=== PATIENT | female | born 1960 | race Two or more races ===

== ENCOUNTER 2018-10-05 03:23 | Inpatient (IN) | payer MEDICARE, OTHER ==
[~2018-10-05] VITALS: Ht 154.9 cm; Wt 64.2 kg
[2018-10-05 06:00] VITALS: BP 121/72
[2018-10-05 06:14] VITALS: BP 121/72
--- NOTE | 2018-10-05 06:20 | NUR ---
NURSE NOTES: PATIENT IS A DIRECT ADMIT FROM [facility]. RECEIVED PATIENT BY AMBULANCE, ACCOMPANIED BY SISTER. PATIENT HAS TWO IV ACCESS, LEFT HAND 20 GAUGE, AND RIGHT WRIST 22 GAUGE, INTACT. PATIENT IS AWAKE, ABLE TO FOLLOW COMMANDS AND ANSWER QUESTIONS, BUT IS NOT ALERT TO NAME, DATE, PLACE, OR PURPOSE. SISTER ASSISTED IN TRANSLATION AND CAN SPEAK BASIC [place] SINCE WHEN NURSE TRIED TO USE 3 VOICEPLATE[employer] PHONES, NONE OF THEM WORKED, CHARGE NURSE AWARE. NO S/S RESPIRATORY DISTRESS NOTED. PER FLACC SCALE, PAIN SCALE IS 4/10. PATIENT NOTED LEFT THUMB TO BE BLUE, PURPLE, WHITE, RED, AND PINK IN COLOR WITH SCANT DRAINAGE AND SWELLING, COVERED WITH DRY DRESSING. PER SISTER, PATIENT LIVES WITH HER. LAST BM OF PATIENT PER SISTER WAS YESTERDAY 10/04/18. REVIEWED PATIENT BELONGINGS WITH SISTER, PER SISTER SHE WILL TAKE HOME THE 1 EARRING ON PATIENT'S LEFT EAR AND LEAVE PATIENT'S CLOTHING AND UNDERWEAR AT BEDSIDE, NO OTHER VALUABLES - HUBER OR MONEY NOTED, SISTER SIGNED BELONGINGS LIST. BED IN LOWEST POSITION, CALL LIGHT WITHIN REACH. WILL CONTINUE TO MONITOR. Addendum: 10/05/18 at 0638 by COLLIN SAUCEDA RN RN PER PATIENT'S SISTER, PATIENT IS "MENTALLY RETARDED".
[2018-10-05] MEDS ORDERED: CENTRUM PO (06:29)
--- NOTE | 2018-10-05 06:30 | NUR ---
NURSE NOTES: PER PATIENT'S SISTER, PATIENT TAKES CENTRUM MULTIVITAMIN PO DAILY.
--- NOTE | 2018-10-05 06:40 | NUR ---
NURSE NOTES: CALLED AND LEFT MESSAGE FOR DR. CORMIER REGARDING ADMISSION ORDERS, AWAITING RESPONSE.
--- NOTE | 2018-10-05 07:24 | NUR ---
NURSE NOTES:BEDSIDE ROUNDS DONE WITH NIGHT RN(COLLIN)PATIENT ASLEEP ON HER RIGHT SIDE POSITION,ROOM AIR,LEFT THUMB DRSNG C/D/I. 2 HEPLOCKS INTACT.BED LOCKED.NO SIGN OF DISTRESS.
--- NOTE | 2018-10-05 07:24 | NUR ---
HAND-OFF: Report given to MANUEL CELESTE RN.
[2018-10-05] MEDS ORDERED: Morphine Sulfate 2mg/ml Inj(IV/IM USE ONLY) IVP PRN (07:45)
[2018-10-05 08:00] VITALS: BP 137/79
[2018-10-05] MEDS: Cefepime HCl 1 GM in D5W 55 ML IVPB SCH ×2 (08:54→21:39)
--- NOTE | 2018-10-05 09:00 | NUR ---
NURSE NOTES:awake,oriented to name,room air,iv sites x2 patent/intact.bed locked.responding verbally,no c/o pain.sister at bedside for supportive care.
[2018-10-05] MEDS ORDERED: Vancomycin 1gm in D5W 275ml IVPB SCH (10:00)
--- NOTE | 2018-10-05 10:00 | NUR ---
NURSE NOTES:ASSISTED TO BATHROOM,VOIDED.
[2018-10-05 11:54] VITALS: BP 117/65
--- NOTE | 2018-10-05 13:24 | History & Physical ---
History and Physical History & Physicial Dictated for Int Med-Dfr [facility] no. [id number]. Eladio Fletcher MD October 05, 2018 13:24
--- NOTE | 2018-10-05 14:56 | NUR ---
CASE MANAGEMENT: INITIAL REVIEW 58 YO F DIRECT ADMIT FROM [facility] CC: CELLULITIS PMHx: DENIES SI:LEFT THUMB CELLULITIS ABSCESS. T 97.9 HR 80 RR 20 B/P 117/65 SATS 95% ON RA NO LABS PROVIDED IS:CEFEPIME IV Q12H PATIENT ADMITTED TO MED/SURG 10/05/2018 @ 0808 PLAN OF CARE: XRAY HAND IV ANTIBx
--- NOTE | 2018-10-05 15:12 | NUR ---
NURSE NOTES:SEEN BY DR. OLIVEROS.AND CHANGE DRESSING ON LEFT THUMB WITH ADAPTIC/08/14.NO SURGERY INDICATED.
--- NOTE | 2018-10-05 15:12 | Consultation ---
History of Present Illness General Date patient seen: October 05, 2018 Present Illness HPI 58 year old female presented as transfer from outside facility for evaluate of left hand thumb injury. states that 3 days ago injured her left thumb in door jam. since has worsened and did not tell anyone about it. family noted and came to ED for evaluation. surgery called to evaluate thumb for injury. patient seen, chart reviewed, patient examined. states pain improving slowly. Allergies: Coded Allergies: No Known Allergies (Unverified , 10/05/18) Medication History Scheduled [Centrum], 1 TAB PO DAILY, (Reported) Patient History History Provided By: Patient, Family Member, Medical Record, PMD Healthcare decision maker Resuscitation status Advanced Directive on File Past Medical/Surgical History Past Medical/Surgical History: (1) Cellulitis of left thumb Review of Systems Review of Symptoms General ROS: no weight loss or fever Psychological ROS: no depression or mood changes, no memory loss Ophthalmic ROS: no visual changes or eye irritation ENT ROS: no nasal congestion, hearing loss, dizziness Allergy and Immunology ROS: no allergic symptoms or urticaria Hematological and Lymphatic ROS: no swollen glands, unusual bleeding or bruising Endocrine ROS: no polyuria, polydipsia, weight changes, temperature intolerance Respiratory ROS: no cough, shortness of breath, or wheezing Cardiovascular ROS: no chest pain or dyspnea on exertion Gastrointestinal ROS: denies abdominal pain, no bright red blood in stool. Musculoskeletal ROS: no myalgias or arthralgias Neurological ROS: no TIA or stroke symptoms Dermatological ROS: no new or changing skin lesions, rashes or pruritis Physical Exam Physical Exam General appearance: alert, cooperative, no distress, appears stated age Head: Normocephalic, without obvious abnormality, atraumatic Eyes: conjunctivae/corneas clear. PERRL, EOM's intact. Fundi benign Throat: Lips, mucosa, and tongue normal. Teeth and gums normal Neck: supple, symmetrical, trachea midline, no adenopathy, thyroid: not enlarged, symmetric, no tenderness/mass/nodules, no carotid bruit and no JVD Lungs: clear to auscultation bilaterally Heart: regular rate and rhythm, S1, S2 normal, no murmur, click, rub or gallop Abdomen: soft, non-tender. Bowel sounds normal. No masses, no organomegaly Extremities: extremities normal, atraumatic, no cyanosis or edema Pulses: 2+ and symmetric Skin: Skin color, texture, turgor normal. No rashes or lesions Neurologic: Grossly normal Last 24 Hour Vital Signs Date Time Temp Pulse Resp B/P (MAP) Pulse Ox O2 Delivery O2 Flow Rate FiO2 10/05/18 11:54 97.9 80 20 117/65 (82) 95 10/05/18 09:00 Room Air 10/05/18 08:00 97.3 68 20 137/79 (98) 99 10/05/18 06:08 Room Air 10/05/18 06:00 98.6 82 18 121/72 (88) 94 Height (Feet): 5 Height (Inches): 1.00 Weight (Pounds): 142 Medications Current Medications Medications (Trade) Dose Ordered Sig/Collin Route PRN Reason Start Time Stop Time Status Last Admin Dose Admin Acetaminophen (Tylenol) 650 mg Q6H PRN ORAL Mild Pain/Temp > 100.5 10/05/18 07:45 11/04/18 07:44 Acetaminophen/ Hydrocodone Bitart ([place] 5/325) 1 tab Q6H PRN ORAL Moderate Pain (Pain Scale 4-6) 10/05/18 07:45 10/12/18 07:44 Cefepime HCl 1 gm/ Dextrose 55 ml @ 110 mls/hr EVERY 12 HOURS IVPB 10/05/18 09:00 10/12/18 08:59 10/05/18 08:54 Morphine Sulfate (Morphine Sulfate) 2 mg Q4H PRN IVP Severe Pain (Pain Scale 7-10) 10/05/18 07:45 10/12/18 07:44 Ondansetron HCl (Zofran) 4 mg Q4H PRN IVP Nausea & Vomiting 10/05/18 07:45 11/04/18 07:44 Vancomycin HCl (Vanco rx to dose) 1 ea DAILY PRN MISC Per rx protocol 10/05/18 07:45 11/04/18 07:44 Assessment/Plan Problem List: (1) Cellulitis of left thumb Assessment & Plan: left thumb cellulitis after trauma afebrile, HD stable, labs pending exam with left thumb edema, and mild cellulitis. tender at nailbed. no significant edema or tenderness at pip, mainly at dip. skin sloth from underlying hematoma. wound bed evaluated at bedside. sloth skin removed and underlying tissue bed clean and healthy nail bed visible and may not be viable. wound cleaned dressings applied cont with current therapy okay for diet AM labs Abx will monitor over next day or two to see if needs further surgical intervention thank you ICD Codes: L03.012 - Cellulitis of left finger SNOMED: [id number] Ketan Chu October 05, 2018 15:12
[2018-10-05] MEDS: HYDROcodone/Acetamin 5/325 tab ORAL PRN ×2 (15:19→21:41)
--- NOTE | 2018-10-05 15:19 | NUR ---
NURSE NOTES:NORCO 5/325 GIVEN FOR C/O THROBBING PAIN ON LEFT THUMB 10/20.
--- NOTE | 2018-10-05 15:35 | NUR ---
HAND-OFF: Report given to ESHA DURANT.RE:CONTINUITY OF CARE.BEDSIDE ROUNDS DONE.PATIENT STABLE.SISTER AT BEDSIDE FOR SUPPORTIVE CARE..
--- NOTE | 2018-10-05 15:35 | NUR ---
NURSE NOTES: PATIENT RECEIVED FROM MANUEL Rodriguez RN. WALKING ROUNDS DONE. PATIENT IN BED IN SUPINE POSITION. SISTER AT BEDSIDE. DENIES PAIN TO LEFT THUMB SITE. SMILING AND LAUGHING.DISCUSSED PLAN OF CARE FOR THE REMAINDER OF THE DAY WITH PATIENT AND SISTER, ACKNOWLEDGED. BED IN LOW AND LOCKED POSITION. CALL LIGHT WITHIN REACH.
[2018-10-05 15:55] VITALS: BP 98/52
--- NOTE | 2018-10-05 17:15 | History and Physical Report ---
DATE OF ADMISSION: 10/05/2018 CHIEF COMPLAINT: The patient is a 58-year-old female who presents with chief complaint of left thumb pain. HISTORY OF PRESENT ILLNESS: Began on , the patient shut her left thumb in a door. Thumb began to swell. Left thumb is now erythematous. The patient presented initially to [facility] Emergency Room. An initial chest x-ray failed to demonstrate osteomyelitis. The patient was transferred to [facility] for insurance purposes. The patient is admitted for left thumb cellulitis/abscess. REVIEW OF SYSTEMS: CONSTITUTIONAL: The patient denies weight loss or weight gain. The patient denies fevers or chills. HEENT: The patient denies ear or throat pain. The patient does have a lazy eye on the right. CARDIOVASCULAR: The patient denies palpitations or chest pain. CHEST: The patient denies wheeze or shortness of breath. ABDOMINAL: The patient denies nausea, vomiting, diarrhea, or constipation. GENITOURINARY: The patient denies dysuria or increased frequency of urination. NEUROMUSCULAR: The patient complains of left thumb pain as above. The patient denies seizures or generalized weakness. PAST MEDICAL HISTORY: The patient denies. PAST SURGICAL HISTORY: The patient denies. CURRENT MEDICATIONS: The patient denies. ALLERGIES: No known drug allergies. SOCIAL HISTORY: The patient is single and lives with her sister. The patient denies tobacco or alcohol use. PHYSICAL EXAMINATION: VITAL SIGNS: Temperature 98.6, respirations 18, pulse 80 to 92, blood pressure 111 to 117 over 60 to 64. GENERAL: The patient is well-developed and well-nourished female, in no apparent distress. HEENT: Eyes, pupils are equal and responsive to light and accommodation. Extraocular movements are intact. NECK: Supple without lymphadenopathy. CHEST: Lungs are clear to auscultation bilaterally without wheezes or rales. CARDIOVASCULAR: Regular rate and rhythm. S1 and S2 normal without murmurs, rubs, or gallops. ABDOMEN: Soft, nontender, and nondistended. Positive bowel sounds. No evidence of hepatosplenomegaly. Currently, no rebound or guarding noted. EXTREMITIES: Left thumb is erythematous and swollen. Otherwise extremities without clubbing, cyanosis, or edema. RECTAL/GENITAL: Refused. NEUROLOGIC: Cranial nerves II through XII are grossly intact without focal deficits. Motor strength is 5/5 bilaterally. Deep tendon reflexes are 2+ plantar. LABORATORY STUDIES: WBC 14.2, hemoglobin 13.4, hematocrit 41.2, platelets 375,000. Sodium 137, potassium 4.1, chloride 105, CO2 23, BUN 11, creatinine 0.48, glucose 123. An x-ray of the left hand failed to demonstrate fracture or obvious gas presence. ASSESSMENT: This is a 58-year-old female. 1. Left finger cellulitis . 2. Left thumb abscess. TREATMENT: Left finger cellulitis/abscess. A Surgery consultation has been obtained with Dr. Chu. A repeat x-ray is pending. The patient has been started empirically on intravenous vancomycin and cefepime. We will follow recommendations of Surgery. Eladio Fletcher M.D. DR: Gloria JOB#: [id number] CC:
--- NOTE | 2018-10-05 19:30 | NUR ---
HAND-OFF: Report given to DEEPA LEON RN.
--- NOTE | 2018-10-05 19:31 | NUR ---
NURSE NOTES: Left thumb dressing dry and intact.
--- NOTE | 2018-10-05 19:31 | NUR ---
NURSE NOTES: Received report from CARLEEN Mesa. Patient resting in bed. Bed in low position, locked, side rails up x2. Call light within reach. No distress noted. Patient's sister at bedside. Saline locks on L hand and R wrist, both patent and intact. Patient is able to ambulate to bathroom with little assistance. Will continue to monitor.
[2018-10-05 20:00] VITALS: BP 90/53
[2018-10-06] VITALS: BP 106/69
[2018-10-06 05:20] VITALS: BP 102/57
[2018-10-06] MEDS: HYDROcodone/Acetamin 5/325 tab ORAL PRN ×2 (05:27→15:35)
[2018-10-06 06:16] LABS: BASOPHILS % (AUTO) 1.2 % (0.0-2.0); EOSINOPHILS % (AUTO) 1.9 % (0.0-3.0); HEMATOCRIT 36.4 % (37.0-47.0); HEMOGLOBIN 12.1 G/DL (12.0-16.0); LYMPHOCYTES % (AUTO) 38.9 % (20.0-45.0); MEAN CORPUSCULAR VOLUME 83 FL (80-99); MONOCYTES % (AUTO) 10.3 % (1.0-10.0); NEUTROPHILS % (AUTO) 47.7 % (45.0-75.0); PLATELET COUNT 317 K/UL (150-450); RED CELL DISTRIBUTION WIDTH 13.3 % (11.6-14.8); WHITE BLOOD COUNT 6.4 K/UL (4.8-10.8)
[2018-10-06 06:45] LABS: ANION GAP 8 mmol/L (5-15); BLOOD UREA NITROGEN 15 mg/dL (7-18); CALCIUM 8.7 MG/DL (8.5-10.1); CARBON DIOXIDE 25 MMOL/L (21-32); CHLORIDE 107 MMOL/L (98-107); CREATININE 0.6 MG/DL (0.55-1.30); PHOSPHORUS 4.3 MG/DL (2.5-4.9); POTASSIUM 4.1 MMOL/L (3.5-5.1); SODIUM 140 MMOL/L (136-145)
--- NOTE | 2018-10-06 07:30 | NUR ---
HAND-OFF: Report given to CARLEEN Sandoval.
[2018-10-06 08:00] VITALS: BP 126/50
--- NOTE | 2018-10-06 08:00 | NUR ---
NURSE NOTES: Pt is awake. Sister at bedside. Pashto speaker. xray remains pending . All anticipated needs will be met
[2018-10-06] MEDS: Vancomycin 750mg/NS 275ml IVPB SCH ×4 (09:42→20:09)
--- NOTE | 2018-10-06 10:39 | Diagnostic Imaging Report ---
EXAM: XR Left Hand Complete, 3 or More Views CLINICAL HISTORY: PAIN TECHNIQUE: Frontal, lateral and oblique views of the left hand. COMPARISON: No relevant prior studies available. FINDINGS: Bones/joints: Minimal degenerative changes at the DIP joints. No acute fracture. No dislocation. Soft tissues: Unremarkable. No radiopaque foreign body. Tubes, lines and devices: IV catheter dorsal hand. IMPRESSION: 1. IV catheter dorsal hand. 2. Minimal degenerative changes at the DIP joints. No acute process.
--- NOTE | 2018-10-06 10:41 | NUR ---
NURSE NOTES: Pt has down syndrome but is able to verbalize needs , and has answered questions appropriately. Pt is a Romansh speaker , and is alert to more 3 . per report given Pt AO x 1, which is not the case today. Inquisitive about plan of care , upbeat personality. Current plan of care will be followed
[2018-10-06 12:00] VITALS: BP 133/75
[2018-10-06] MEDS: Cefepime HCl 1 GM in D5W 55 ML IVPB SCH ×2 (12:52→21:52)
--- NOTE | 2018-10-06 13:28 | Internal Med Progress Note ---
Subjective Date of Service: October 06, 2018 Physician Name Eladio Fletcher Attending Physician Ham Rajput MD Current Medications Medications (Trade) Dose Ordered Sig/Collin Route PRN Reason Start Time Stop Time Status Last Admin Dose Admin Acetaminophen (Tylenol) 650 mg Q6H PRN ORAL Mild Pain/Temp > 100.5 10/05/18 07:45 11/04/18 07:44 Acetaminophen/ Hydrocodone Bitart ([place] 5/325) 1 tab Q6H PRN ORAL Moderate Pain (Pain Scale 4-6) 10/05/18 07:45 10/12/18 07:44 10/06/18 05:27 Cefepime HCl 1 gm/ Dextrose 55 ml @ 110 mls/hr EVERY 12 HOURS IVPB 10/05/18 09:00 10/12/18 08:59 10/06/18 12:52 Morphine Sulfate (Morphine Sulfate) 2 mg Q4H PRN IVP Severe Pain (Pain Scale 7-10) 10/05/18 07:45 10/12/18 07:44 Ondansetron HCl (Zofran) 4 mg Q4H PRN IVP Nausea & Vomiting 10/05/18 07:45 11/04/18 07:44 Vancomycin HCl (Vanco rx to dose) 1 ea DAILY PRN MISC Per rx protocol 10/05/18 07:45 11/04/18 07:44 Vancomycin HCl 750 mg/Sodium Chloride 275 ml @ 183.333 mls/hr Q12H IVPB 10/06/18 08:00 10/11/18 07:59 10/06/18 09:42 Allergies: Coded Allergies: No Known Allergies (Unverified , 10/05/18) ROS Limited/Unobtainable: No Constitutional: Reports: no symptoms HEENT: Reports: no symptoms Cardiovascular: Reports: no symptoms Respiratory: Reports: no symptoms Gastrointestinal/Abdominal: Reports: no symptoms Genitourinary: Reports: no symptoms Neurologic/Psychiatric: Reports: no symptoms Subjective 58 YO F admitted with left thumb cellulitis. Cover for Int Med-Dr Rajput. Objective Last Vital Signs Date Time Temp Pulse Resp B/P (MAP) Pulse Ox O2 Delivery O2 Flow Rate FiO2 10/06/18 09:00 Room Air 10/06/18 08:00 98.5 75 17 126/50 (75) 10/06/18 05:20 97 Laboratory Tests Test 10/06/18 05:24 White Blood Count 6.4 K/UL (4.8-10.8) Red Blood Count 4.40 M/UL (4.20-5.40) Hemoglobin 12.1 G/DL (12.0-16.0) Hematocrit 36.4 % (37.0-47.0) L Mean Corpuscular Volume 83 FL (80-99) Mean Corpuscular Hemoglobin 27.5 PG (27.0-31.0) Mean Corpuscular Hemoglobin Concent 33.2 G/DL (32.0-36.0) Red Cell Distribution Width 13.3 % (11.6-14.8) Platelet Count 317 K/UL (150-450) Mean Platelet Volume 5.4 FL (6.5-10.1) L Neutrophils (%) (Auto) 47.7 % (45.0-75.0) Lymphocytes (%) (Auto) 38.9 % (20.0-45.0) Monocytes (%) (Auto) 10.3 % (1.0-10.0) H Eosinophils (%) (Auto) 1.9 % (0.0-3.0) Basophils (%) (Auto) 1.2 % (0.0-2.0) Prothrombin Time 10.6 SEC (9.30-11.50) Prothromb Time International Ratio 1.0 (0.9-1.1) Activated Partial Thromboplast Time 29 SEC (23-33) Sodium Level 140 MMOL/L (136-145) Potassium Level 4.1 MMOL/L (3.5-5.1) Chloride Level 107 MMOL/L (98-107) Carbon Dioxide Level 25 MMOL/L (21-32) Anion Gap 8 mmol/L (5-15) Blood Urea Nitrogen 15 mg/dL (7-18) Creatinine 0.6 MG/DL (0.55-1.30) Estimat Glomerular Filtration Rate > 60 mL/min (>60) Glucose Level 86 MG/DL (74-106) Calcium Level 8.7 MG/DL (8.5-10.1) Phosphorus Level 4.3 MG/DL (2.5-4.9) Magnesium Level 2.1 MG/DL (1.8-2.4) Random Vancomycin Level 6.2 ug/mL Intake and Output 10/05/18 10/06/18 19:00 07:00 Intake Total 400 ml 720 ml Balance 400 ml 720 ml Intake Oral 400 ml 720 ml # Voids 1 3 Objective PHYSICAL EXAMINATION: GENERAL: The patient is well-developed and well-nourished female, in no apparent distress. HEENT: Eyes, pupils are equal and responsive to light and accommodation. Extraocular movements are intact. NECK: Supple without lymphadenopathy. CHEST: Lungs are clear to auscultation bilaterally without wheezes or rales. CARDIOVASCULAR: Regular rate and rhythm. S1 and S2 normal without murmurs, rubs, or gallops. ABDOMEN: Soft, nontender, and nondistended. Positive bowel sounds. No evidence of hepatosplenomegaly. Currently, no rebound or guarding noted. EXTREMITIES: Left thumb is erythematous and swollen. Otherwise extremities without clubbing, cyanosis, or edema. RECTAL/GENITAL: Refused. NEUROLOGIC: Cranial nerves II through XII are grossly intact without focal deficits. Motor strength is 5/5 bilaterally. Deep tendon reflexes are 2+ plantar. Assessment/Plan Assessment/Plan ASSESSMENT: This is a 58-year-old female. 1. Left finger cellulitis . 2. Left thumb abscess. TREATMENT: Left finger cellulitis/abscess. A Surgery consultation has been obtained with Dr. Chu. A repeat x-ray is pending. The patient has been started empirically on intravenous vancomycin and cefepime. We will follow recommendations of Surgery. Eladio Fletcher MD October 06, 2018 13:28
--- NOTE | 2018-10-06 14:52 | Consultation ---
History of Present Illness General Date patient seen: October 06, 2018 Reason for Consultation: inpatient management Present Illness HPI 58 year old female without any significant PMHx presented initially to [facility] with CC of swelling of left thumb,. Pt was diagnosed to have cellulitis, she received the initial abx and transferred to [facility] for further management. Allergies: Coded Allergies: No Known Allergies (Unverified , 10/05/18) Medication History Scheduled [Centrum], 1 TAB PO DAILY, (Reported) Patient History Healthcare decision maker Resuscitation status Advanced Directive on File Past Medical/Surgical History Past Medical/Surgical History: (1) No pertinent past medical history Review of Systems Constitutional: Reports: no symptoms Respiratory: Reports: no symptoms Cardiovascular: Reports: no symptoms Gastrointestinal: Reports: no symptoms Physical Exam General Appearance: WD/WN, alert HEENT: normocephalic, anicteric Neck: non-tender, normal alignment Respiratory/Chest: chest wall non-tender, lungs clear, normal breath sounds Breasts: no masses Cardiovascular/Chest: normal peripheral pulses Abdomen: normal bowel sounds, hyperactive bowel sounds Genitourinary/Rectal: normal genital exam Last 24 Hour Vital Signs Date Time Temp Pulse Resp B/P (MAP) Pulse Ox O2 Delivery O2 Flow Rate FiO2 10/06/18 12:00 98.1 76 15 133/75 (94) 98 10/06/18 09:00 Room Air 10/06/18 08:00 98.5 75 17 126/50 (75) 10/06/18 05:57 97.6 10/06/18 05:20 97.6 78 20 102/57 (72) 97 10/06/18 00:00 97.7 71 16 106/69 (81) 97 10/05/18 21:00 Room Air 10/05/18 20:00 98.2 79 18 90/53 (65) 98 10/05/18 15:55 98.1 75 21 98/52 (67) 98 Intake and Output 10/05/18 10/06/18 18:59 06:59 Intake Total 400 ml 720 ml Balance 400 ml 720 ml Intake Oral 400 ml 720 ml # Voids 1 3 Laboratory Tests Test 10/06/18 05:24 White Blood Count 6.4 K/UL (4.8-10.8) Red Blood Count 4.40 M/UL (4.20-5.40) Hemoglobin 12.1 G/DL (12.0-16.0) Hematocrit 36.4 % (37.0-47.0) L Mean Corpuscular Volume 83 FL (80-99) Mean Corpuscular Hemoglobin 27.5 PG (27.0-31.0) Mean Corpuscular Hemoglobin Concent 33.2 G/DL (32.0-36.0) Red Cell Distribution Width 13.3 % (11.6-14.8) Platelet Count 317 K/UL (150-450) Mean Platelet Volume 5.4 FL (6.5-10.1) L Neutrophils (%) (Auto) 47.7 % (45.0-75.0) Lymphocytes (%) (Auto) 38.9 % (20.0-45.0) Monocytes (%) (Auto) 10.3 % (1.0-10.0) H Eosinophils (%) (Auto) 1.9 % (0.0-3.0) Basophils (%) (Auto) 1.2 % (0.0-2.0) Prothrombin Time 10.6 SEC (9.30-11.50) Prothromb Time International Ratio 1.0 (0.9-1.1) Activated Partial Thromboplast Time 29 SEC (23-33) Sodium Level 140 MMOL/L (136-145) Potassium Level 4.1 MMOL/L (3.5-5.1) Chloride Level 107 MMOL/L (98-107) Carbon Dioxide Level 25 MMOL/L (21-32) Anion Gap 8 mmol/L (5-15) Blood Urea Nitrogen 15 mg/dL (7-18) Creatinine 0.6 MG/DL (0.55-1.30) Estimat Glomerular Filtration Rate > 60 mL/min (>60) Glucose Level 86 MG/DL (74-106) Calcium Level 8.7 MG/DL (8.5-10.1) Phosphorus Level 4.3 MG/DL (2.5-4.9) Magnesium Level 2.1 MG/DL (1.8-2.4) Random Vancomycin Level 6.2 ug/mL Height (Feet): 5 Height (Inches): 1.00 Weight (Pounds): 142 Medications Current Medications Medications (Trade) Dose Ordered Sig/Collin Route PRN Reason Start Time Stop Time Status Last Admin Dose Admin Acetaminophen (Tylenol) 650 mg Q6H PRN ORAL Mild Pain/Temp > 100.5 10/05/18 07:45 11/04/18 07:44 Acetaminophen/ Hydrocodone Bitart ([place] 5/325) 1 tab Q6H PRN ORAL Moderate Pain (Pain Scale 4-6) 10/05/18 07:45 10/12/18 07:44 10/06/18 05:27 Cefepime HCl 1 gm/ Dextrose 55 ml @ 110 mls/hr EVERY 12 HOURS IVPB 10/05/18 09:00 10/12/18 08:59 10/06/18 12:52 Morphine Sulfate (Morphine Sulfate) 2 mg Q4H PRN IVP Severe Pain (Pain Scale 7-10) 10/05/18 07:45 10/12/18 07:44 Ondansetron HCl (Zofran) 4 mg Q4H PRN IVP Nausea & Vomiting 10/05/18 07:45 11/04/18 07:44 Vancomycin HCl (Vanco rx to dose) 1 ea DAILY PRN MISC Per rx protocol 10/05/18 07:45 11/04/18 07:44 Vancomycin HCl 750 mg/Sodium Chloride 275 ml @ 183.333 mls/hr Q12H IVPB 10/06/18 08:00 10/11/18 07:59 10/06/18 09:42 Assessment/Plan Problem List: (1) Cellulitis of left thumb ICD Codes: L03.012 - Cellulitis of left finger SNOMED: [id number] (2) No pertinent past medical history ICD Codes: Z78.9 - Other specified health status SNOMED: [id number] Assessment/Plan: wound care iv abx symptomatic treatment f/u surgical recommendations dvt prophylaxis. Baldo Smliey MD October 06, 2018 14:52
--- NOTE | 2018-10-06 14:58 | NUR ---
NURSE NOTES: Pt does not have any side effect related to antibiotic use. Able to verbalized. known needs
[2018-10-06 16:00] VITALS: BP 120/67
--- NOTE | 2018-10-06 18:13 | NUR ---
NURSE NOTES: Pt sister is at bedside. Current plan of care followed. dr Smiley here earlier in shift sen pt. NNO
--- NOTE | 2018-10-06 19:30 | NUR ---
NURSE NOTES: Report received from CARLEEN Sandoval. Patient resting in bed. Sister at bedside.
--- NOTE | 2018-10-06 19:37 | Surgery Progress Note ---
Surgery Progress Note Subjective Symptoms: improved, tolerating diet, passing flatus, pain decreased Additional Comments doing well. no complaints. dressing changed. Objective Last 24 Hour Vital Signs Date Time Temp Pulse Resp B/P (MAP) Pulse Ox O2 Delivery O2 Flow Rate FiO2 10/06/18 16:00 98.2 68 15 120/67 (84) 99 10/06/18 12:00 98.1 76 15 133/75 (94) 98 10/06/18 09:00 Room Air 10/06/18 08:00 98.5 75 17 126/50 (75) 10/06/18 05:57 97.6 10/06/18 05:20 97.6 78 20 102/57 (72) 97 10/06/18 00:00 97.7 71 16 106/69 (81) 97 10/05/18 21:00 Room Air 10/05/18 20:00 98.2 79 18 90/53 (65) 98 I&O Intake and Output 10/05/18 10/06/18 18:59 06:59 Intake Total 400 ml 720 ml Balance 400 ml 720 ml Intake Oral 400 ml 720 ml # Voids 1 3 Dressing: saturated Wound: other Drains: other Cardiovascular: RSR Respiratory: clear Abdomen: soft, flat, non-tender, present bowel sounds, non-distended Extremities: no edema, no tenderness, no cyanosis Laboratory Tests Test 10/06/18 05:24 White Blood Count 6.4 K/UL (4.8-10.8) Red Blood Count 4.40 M/UL (4.20-5.40) Hemoglobin 12.1 G/DL (12.0-16.0) Hematocrit 36.4 % (37.0-47.0) L Mean Corpuscular Volume 83 FL (80-99) Mean Corpuscular Hemoglobin 27.5 PG (27.0-31.0) Mean Corpuscular Hemoglobin Concent 33.2 G/DL (32.0-36.0) Red Cell Distribution Width 13.3 % (11.6-14.8) Platelet Count 317 K/UL (150-450) Mean Platelet Volume 5.4 FL (6.5-10.1) L Neutrophils (%) (Auto) 47.7 % (45.0-75.0) Lymphocytes (%) (Auto) 38.9 % (20.0-45.0) Monocytes (%) (Auto) 10.3 % (1.0-10.0) H Eosinophils (%) (Auto) 1.9 % (0.0-3.0) Basophils (%) (Auto) 1.2 % (0.0-2.0) Prothrombin Time 10.6 SEC (9.30-11.50) Prothromb Time International Ratio 1.0 (0.9-1.1) Activated Partial Thromboplast Time 29 SEC (23-33) Sodium Level 140 MMOL/L (136-145) Potassium Level 4.1 MMOL/L (3.5-5.1) Chloride Level 107 MMOL/L (98-107) Carbon Dioxide Level 25 MMOL/L (21-32) Anion Gap 8 mmol/L (5-15) Blood Urea Nitrogen 15 mg/dL (7-18) Creatinine 0.6 MG/DL (0.55-1.30) Estimat Glomerular Filtration Rate > 60 mL/min (>60) Glucose Level 86 MG/DL (74-106) Calcium Level 8.7 MG/DL (8.5-10.1) Phosphorus Level 4.3 MG/DL (2.5-4.9) Magnesium Level 2.1 MG/DL (1.8-2.4) Random Vancomycin Level 6.2 ug/mL Plan Problems: (1) Cellulitis of left thumb Assessment & Plan: left thumb cellulitis after trauma afebrile, HD stable, labs pending exam with left thumb edema, and mild cellulitis. tender at nailbed. no significant edema or tenderness at pip, mainly at dip. skin sloth from underlying hematoma. wound bed evaluated at bedside. sloth skin removed and underlying tissue bed clean and healthy nail bed visible and may not be viable. wound cleaned dressings applied wound reevaluated today and edema improving. some more skin sloth removed. overall improved. cont with current therapy okay for diet AM labs Abx d/c planning thank you Ketan Chu October 06, 2018 19:37
[2018-10-06 20:00] VITALS: BP 102/58
--- NOTE | 2018-10-06 20:00 | NUR ---
NURSE NOTES: Patient has down's syndrome, able to verbalize needs and answer most questions appropriately. Alert, awake, oriented to self and situation only, not oriented to time or place. Forgets limitations. Denies pain at this time. Sister at bedside, states physician visited a bit ago and changed left thumb dressing. Dressing dry and intact.
--- NOTE | 2018-10-06 20:06 | NUR ---
HAND-OFF: Report given to Odilia DURANT
[2018-10-07] VITALS: BP 93/52
[2018-10-07 04:00] VITALS: BP 110/88
--- NOTE | 2018-10-07 07:30 | NUR ---
HAND-OFF: Report given to CARLEEN Hickman.
--- NOTE | 2018-10-07 07:30 | NUR ---
NURSE NOTES: Patient is in bed awake and able to follow simple commands. Patient denies pain or SOB. Stable. Patient is encouraged to use call light for assistance. Patient's sister is at bedside. Patient is in bed in locked and lowest position with call light within reach. All safety measures provided. Will continue to monitor.
[2018-10-07 08:00] VITALS: BP 110/64
[2018-10-07] MEDS: Vancomycin 750mg/NS 275ml IVPB SCH ×4 (08:12→20:17)
[2018-10-07 08:37] LABS: BASOPHILS % (AUTO) 0.6 % (0.0-2.0); EOSINOPHILS % (AUTO) 1.6 % (0.0-3.0); HEMATOCRIT 36.7 % (37.0-47.0); LYMPHOCYTES % (AUTO) 31.4 % (20.0-45.0); MEAN CORPUSCULAR VOLUME 83 FL (80-99); NEUTROPHILS % (AUTO) 55.5 % (45.0-75.0); PLATELET COUNT 324 K/UL (150-450); RED BLOOD COUNT 4.41 M/UL (4.20-5.40); RED CELL DISTRIBUTION WIDTH 13.3 % (11.6-14.8); WHITE BLOOD COUNT 6.7 K/UL (4.8-10.8)
[2018-10-07 09:04] LABS: ANION GAP 9 mmol/L (5-15); BLOOD UREA NITROGEN 18 mg/dL (7-18); CALCIUM 8.5 MG/DL (8.5-10.1); CARBON DIOXIDE 25 MMOL/L (21-32); CHLORIDE 105 MMOL/L (98-107); CREATININE 0.6 MG/DL (0.55-1.30); POTASSIUM 3.7 MMOL/L (3.5-5.1); SODIUM 139 MMOL/L (136-145)
[2018-10-07] MEDS: Cefepime HCl 1 GM in D5W 55 ML IVPB SCH ×2 (09:32→21:27)
[2018-10-07 12:00] VITALS: BP 109/48
--- NOTE | 2018-10-07 12:15 | Pulmonology Progress Note ---
Assessment/Plan Problems: (1) Cellulitis of left thumb (2) No pertinent past medical history Assessment/Plan doing better wound care f/u ID recommendations, check electrolytes. Subjective ROS Limited/Unobtainable: No Constitutional: Reports: no symptoms HEENT: Repors: no symptoms Respiratory: Reports: no symptoms Allergies: Coded Allergies: No Known Allergies (Unverified , 10/05/18) Objective Last 24 Hour Vital Signs Date Time Temp Pulse Resp B/P (MAP) Pulse Ox O2 Delivery O2 Flow Rate FiO2 10/07/18 09:00 Room Air 10/07/18 08:00 98.7 67 20 110/64 (79) 99 10/07/18 04:00 97.9 88 16 110/88 (95) 95 10/07/18 00:00 98.8 66 18 93/52 (66) 98 10/06/18 21:00 Room Air 10/06/18 20:00 98.8 69 16 102/58 (73) 98 10/06/18 16:00 98.2 68 15 120/67 (84) 99 Intake and Output 10/06/18 10/07/18 19:00 07:00 Intake Total 1959.996 ml 850 ml Balance 1959.996 ml 850 ml Intake Oral 1300 ml 850 ml IV Total 659.996 ml # Voids 3 3 General Appearance: WD/WN HEENT: normocephalic, anicteric Respiratory/Chest: chest wall non-tender, lungs clear Cardiovascular: normal peripheral pulses, regular rhythm Abdomen: normal bowel sounds, soft, non tender, no organomegaly Laboratory Tests 10/07/18 06:47: White Blood Count 6.7, Red Blood Count 4.41, Hemoglobin 12.0, Hematocrit 36.7L, Mean Corpuscular Volume 83, Mean Corpuscular Hemoglobin 27.2, Mean Corpuscular Hemoglobin Concent 32.7, Red Cell Distribution Width 13.3, Platelet Count 324, Mean Platelet Volume 5.3L, Neutrophils (%) (Auto) 55.5, Lymphocytes (%) (Auto) 31.4, Monocytes (%) (Auto) 11.0H, Eosinophils (%) (Auto) 1.6, Basophils (%) ( Auto) 0.6, Sodium Level 139, Potassium Level 3.7, Chloride Level 105, Carbon Dioxide Level 25, Anion Gap 9, Blood Urea Nitrogen 18, Creatinine 0.6, Estimat Glomerular Filtration Rate > 60, Glucose Level 87, Calcium Level 8.5 Current Medications Medications (Trade) Dose Ordered Sig/Collin Route PRN Reason Start Time Stop Time Status Last Admin Dose Admin Acetaminophen (Tylenol) 650 mg Q6H PRN ORAL Mild Pain/Temp > 100.5 10/05/18 07:45 11/04/18 07:44 Acetaminophen/ Hydrocodone Bitart ([place] 5/325) 1 tab Q6H PRN ORAL Moderate Pain (Pain Scale 4-6) 10/05/18 07:45 10/12/18 07:44 10/06/18 15:35 Cefepime HCl 1 gm/ Dextrose 55 ml @ 110 mls/hr EVERY 12 HOURS IVPB 10/05/18 09:00 10/12/18 08:59 10/07/18 09:32 Morphine Sulfate (Morphine Sulfate) 2 mg Q4H PRN IVP Severe Pain (Pain Scale 7-10) 10/05/18 07:45 10/12/18 07:44 Ondansetron HCl (Zofran) 4 mg Q4H PRN IVP Nausea & Vomiting 10/05/18 07:45 11/04/18 07:44 Vancomycin HCl (Vanco rx to dose) 1 ea DAILY PRN MISC Per rx protocol 10/05/18 07:45 11/04/18 07:44 Vancomycin HCl 750 mg/Sodium Chloride 275 ml @ 183.333 mls/hr Q12H IVPB 10/06/18 08:00 10/11/18 07:59 10/07/18 08:12 Baldo Smiley MD October 07, 2018 12:15
[2018-10-07 16:00] VITALS: BP 110/59
--- NOTE | 2018-10-07 16:14 | Surgery Progress Note ---
Surgery Progress Note Subjective Additional Comments doing much better. pain improved. no n/v/f/c. lab capo family at bedside Objective Last 24 Hour Vital Signs Date Time Temp Pulse Resp B/P (MAP) Pulse Ox O2 Delivery O2 Flow Rate FiO2 10/07/18 12:00 98.8 63 21 109/48 (68) 95 10/07/18 09:00 Room Air 10/07/18 08:00 98.7 67 20 110/64 (79) 99 10/07/18 04:00 97.9 88 16 110/88 (95) 95 10/07/18 00:00 98.8 66 18 93/52 (66) 98 10/06/18 21:00 Room Air 10/06/18 20:00 98.8 69 16 102/58 (73) 98 I&O Intake and Output 10/06/18 10/07/18 19:00 07:00 Intake Total 1959.996 ml 850 ml Balance 1959.996 ml 850 ml Intake Oral 1300 ml 850 ml IV Total 659.996 ml # Voids 3 3 Dressing: dry Wound: clean Cardiovascular: RSR Respiratory: clear Abdomen: soft, flat, non-tender, present bowel sounds, non-distended Extremities: no edema, no tenderness, no cyanosis Laboratory Tests Test 10/07/18 06:47 White Blood Count 6.7 K/UL (4.8-10.8) Red Blood Count 4.41 M/UL (4.20-5.40) Hemoglobin 12.0 G/DL (12.0-16.0) Hematocrit 36.7 % (37.0-47.0) L Mean Corpuscular Volume 83 FL (80-99) Mean Corpuscular Hemoglobin 27.2 PG (27.0-31.0) Mean Corpuscular Hemoglobin Concent 32.7 G/DL (32.0-36.0) Red Cell Distribution Width 13.3 % (11.6-14.8) Platelet Count 324 K/UL (150-450) Mean Platelet Volume 5.3 FL (6.5-10.1) L Neutrophils (%) (Auto) 55.5 % (45.0-75.0) Lymphocytes (%) (Auto) 31.4 % (20.0-45.0) Monocytes (%) (Auto) 11.0 % (1.0-10.0) H Eosinophils (%) (Auto) 1.6 % (0.0-3.0) Basophils (%) (Auto) 0.6 % (0.0-2.0) Sodium Level 139 MMOL/L (136-145) Potassium Level 3.7 MMOL/L (3.5-5.1) Chloride Level 105 MMOL/L (98-107) Carbon Dioxide Level 25 MMOL/L (21-32) Anion Gap 9 mmol/L (5-15) Blood Urea Nitrogen 18 mg/dL (7-18) Creatinine 0.6 MG/DL (0.55-1.30) Estimat Glomerular Filtration Rate > 60 mL/min (>60) Glucose Level 87 MG/DL (74-106) Calcium Level 8.5 MG/DL (8.5-10.1) Plan Problems: (1) Cellulitis of left thumb Assessment & Plan: left thumb cellulitis after trauma afebrile, HD stable, labs pending exam with left thumb edema, and mild cellulitis. tender at nailbed. no significant edema or tenderness at pip, mainly at dip. skin sloth from underlying hematoma. wound bed evaluated at bedside. sloth skin removed and underlying tissue bed clean and healthy nail bed visible and may not be viable. wound cleaned dressings applied wound reevaluated today and much improved. near complete resolution of cellulitis. edema improved. now only with wound healing cont with current therapy okay for diet cont with dressing changes okay to shower okay to wash hands d/c planning can f/u outpatient thank you Ketan Chu October 07, 2018 16:14
--- NOTE | 2018-10-07 17:44 | Internal Med Progress Note ---
Subjective Date of Service: October 07, 2018 Physician Name Eladio Fletcher Attending Physician Ham Rajput MD Current Medications Medications (Trade) Dose Ordered Sig/Collin Route PRN Reason Start Time Stop Time Status Last Admin Dose Admin Acetaminophen (Tylenol) 650 mg Q6H PRN ORAL Mild Pain/Temp > 100.5 10/05/18 07:45 11/04/18 07:44 Acetaminophen/ Hydrocodone Bitart ([place] 5/325) 1 tab Q6H PRN ORAL Moderate Pain (Pain Scale 4-6) 10/05/18 07:45 10/12/18 07:44 10/06/18 15:35 Cefepime HCl 1 gm/ Dextrose 55 ml @ 110 mls/hr EVERY 12 HOURS IVPB 10/05/18 09:00 10/12/18 08:59 10/07/18 09:32 Morphine Sulfate (Morphine Sulfate) 2 mg Q4H PRN IVP Severe Pain (Pain Scale 7-10) 10/05/18 07:45 10/12/18 07:44 Ondansetron HCl (Zofran) 4 mg Q4H PRN IVP Nausea & Vomiting 10/05/18 07:45 11/04/18 07:44 Vancomycin HCl (Vanco rx to dose) 1 ea DAILY PRN MISC Per rx protocol 10/05/18 07:45 11/04/18 07:44 Vancomycin HCl 750 mg/Sodium Chloride 275 ml @ 183.333 mls/hr Q12H IVPB 10/06/18 08:00 10/11/18 07:59 10/07/18 08:12 Allergies: Coded Allergies: No Known Allergies (Unverified , 10/05/18) ROS Limited/Unobtainable: No Constitutional: Reports: no symptoms HEENT: Reports: no symptoms Cardiovascular: Reports: no symptoms Respiratory: Reports: no symptoms Gastrointestinal/Abdominal: Reports: no symptoms Genitourinary: Reports: no symptoms Subjective 58 YO F admitted with left thumb cellulitis. Cover for Int Med-Dr Rajput. Objective Last Vital Signs Date Time Temp Pulse Resp B/P (MAP) Pulse Ox O2 Delivery O2 Flow Rate FiO2 10/07/18 12:00 98.8 63 21 109/48 (68) 95 10/07/18 09:00 Room Air Laboratory Tests Test 10/07/18 06:47 White Blood Count 6.7 K/UL (4.8-10.8) Red Blood Count 4.41 M/UL (4.20-5.40) Hemoglobin 12.0 G/DL (12.0-16.0) Hematocrit 36.7 % (37.0-47.0) L Mean Corpuscular Volume 83 FL (80-99) Mean Corpuscular Hemoglobin 27.2 PG (27.0-31.0) Mean Corpuscular Hemoglobin Concent 32.7 G/DL (32.0-36.0) Red Cell Distribution Width 13.3 % (11.6-14.8) Platelet Count 324 K/UL (150-450) Mean Platelet Volume 5.3 FL (6.5-10.1) L Neutrophils (%) (Auto) 55.5 % (45.0-75.0) Lymphocytes (%) (Auto) 31.4 % (20.0-45.0) Monocytes (%) (Auto) 11.0 % (1.0-10.0) H Eosinophils (%) (Auto) 1.6 % (0.0-3.0) Basophils (%) (Auto) 0.6 % (0.0-2.0) Sodium Level 139 MMOL/L (136-145) Potassium Level 3.7 MMOL/L (3.5-5.1) Chloride Level 105 MMOL/L (98-107) Carbon Dioxide Level 25 MMOL/L (21-32) Anion Gap 9 mmol/L (5-15) Blood Urea Nitrogen 18 mg/dL (7-18) Creatinine 0.6 MG/DL (0.55-1.30) Estimat Glomerular Filtration Rate > 60 mL/min (>60) Glucose Level 87 MG/DL (74-106) Calcium Level 8.5 MG/DL (8.5-10.1) Intake and Output 10/06/18 10/07/18 18:59 06:59 Intake Total 1959.996 ml 850 ml Balance 1959.996 ml 850 ml Intake Oral 1300 ml 850 ml IV Total 659.996 ml # Voids 3 3 Objective PHYSICAL EXAMINATION: GENERAL: The patient is well-developed and well-nourished female, in no apparent distress. HEENT: Eyes, pupils are equal and responsive to light and accommodation. Extraocular movements are intact. NECK: Supple without lymphadenopathy. CHEST: Lungs are clear to auscultation bilaterally without wheezes or rales. CARDIOVASCULAR: Regular rate and rhythm. S1 and S2 normal without murmurs, rubs, or gallops. ABDOMEN: Soft, nontender, and nondistended. Positive bowel sounds. No evidence of hepatosplenomegaly. Currently, no rebound or guarding noted. EXTREMITIES: Left thumb is erythematous and swollen. Otherwise extremities without clubbing, cyanosis, or edema. RECTAL/GENITAL: Refused. NEUROLOGIC: Cranial nerves II through XII are grossly intact without focal deficits. Motor strength is 5/5 bilaterally. Deep tendon reflexes are 2+ plantar. Assessment/Plan Assessment/Plan ASSESSMENT: This is a 58-year-old female. 1. Left finger cellulitis . 2. Left thumb abscess. TREATMENT: 1. Left finger cellulitis/abscess. A Surgery consultation has been obtained with Dr. Chu. A repeat x-ray= neg for osteomyelitis. D/C intravenous vancomycin and cefepime prior to discharge; start oral Augmentin. We will follow recommendations of Surgery. Eladio Fletcher MD October 07, 2018 17:44
--- NOTE | 2018-10-07 19:31 | NUR ---
NURSE NOTES:Patient received from Marylou WomackPatient has down syndrome able to verbalized her needs .Patient oriented to self not oriented time and place. Patient able to follow commands . LH G#20 H/L And RW g#22 H/L Patent and intact Patient Sister at bedside. at bedside scds in placed. Patient denies any pain at this time . no s/s of distress . call light within reach . bed in low position at all times . will continue to monitor.
--- NOTE | 2018-10-07 19:31 | NUR ---
HAND-OFF: Report given to Brigid HANEY. Patient is stable.
[2018-10-07 20:00] VITALS: BP 106/57
[2018-10-08] VITALS: BP 110/61
[2018-10-08 04:00] VITALS: BP 105/59
--- NOTE | 2018-10-08 07:31 | NUR ---
HAND-OFF: Report given to Shelyb Womack Addendum: 10/08/18 at 0736 by ROSA M SEGAL LVN Report given to Marylou Womack
--- NOTE | 2018-10-08 07:31 | NUR ---
NURSE NOTES: Patient is in bed awake and able to follow simple commands. Stable. Denies pain or SOB. Patient encouraged to use call light for assistance. Patient is in bed in locked and lowest position with call light within reach, all safety measures provided. Will continue to monitor.
[2018-10-08 08:00] VITALS: BP 96/49
[2018-10-08] MEDS: Vancomycin 750mg/NS 275ml IVPB SCH ×2 (08:29)
[2018-10-08] MEDS: Cefepime HCl 1 GM in D5W 55 ML IVPB SCH (09:55)
[2018-10-08 12:00] VITALS: BP 103/52
--- NOTE | 2018-10-08 12:11 | Internal Med Progress Note ---
Subjective Date of Service: October 08, 2018 Physician Name Eladio Fletcher Attending Physician Ham Rajput MD Current Medications Medications (Trade) Dose Ordered Sig/Collin Route PRN Reason Start Time Stop Time Status Last Admin Dose Admin Acetaminophen (Tylenol) 650 mg Q6H PRN ORAL Mild Pain/Temp > 100.5 10/05/18 07:45 11/04/18 07:44 Acetaminophen/ Hydrocodone Bitart ([place] 5/325) 1 tab Q6H PRN ORAL Moderate Pain (Pain Scale 4-6) 10/05/18 07:45 10/12/18 07:44 10/06/18 15:35 Cefepime HCl 1 gm/ Dextrose 55 ml @ 110 mls/hr EVERY 12 HOURS IVPB 10/05/18 09:00 10/12/18 08:59 10/08/18 09:55 Morphine Sulfate (Morphine Sulfate) 2 mg Q4H PRN IVP Severe Pain (Pain Scale 7-10) 10/05/18 07:45 10/12/18 07:44 Ondansetron HCl (Zofran) 4 mg Q4H PRN IVP Nausea & Vomiting 10/05/18 07:45 11/04/18 07:44 Vancomycin HCl (Vanco rx to dose) 1 ea DAILY PRN MISC Per rx protocol 10/05/18 07:45 11/04/18 07:44 Vancomycin HCl 750 mg/Sodium Chloride 275 ml @ 183.333 mls/hr Q12H IVPB 10/06/18 08:00 10/11/18 07:59 10/08/18 08:29 Allergies: Coded Allergies: No Known Allergies (Unverified , 10/05/18) ROS Limited/Unobtainable: No Constitutional: Reports: no symptoms HEENT: Reports: no symptoms Cardiovascular: Reports: no symptoms Respiratory: Reports: no symptoms Gastrointestinal/Abdominal: Reports: no symptoms Neurologic/Psychiatric: Reports: no symptoms Subjective 58 YO F admitted with left thumb cellulitis. Cover for Int Med-Dr Rajput. Objective Last Vital Signs Date Time Temp Pulse Resp B/P (MAP) Pulse Ox O2 Delivery O2 Flow Rate FiO2 10/08/18 09:00 Room Air 10/08/18 08:00 97.8 80 16 96/49 (65) 97 Laboratory Tests Test 10/07/18 18:55 Vancomycin Level Trough 11.3 ug/mL (5.0-12.0) Intake and Output 10/07/18 10/08/18 19:00 07:00 Intake Total 930.000 ml Balance 930.000 ml Intake Oral 600 ml IV Total 330.000 ml # Voids 3 Objective PHYSICAL EXAMINATION: GENERAL: The patient is well-developed and well-nourished female, in no apparent distress. HEENT: Eyes, pupils are equal and responsive to light and accommodation. Extraocular movements are intact. NECK: Supple without lymphadenopathy. CHEST: Lungs are clear to auscultation bilaterally without wheezes or rales. CARDIOVASCULAR: Regular rate and rhythm. S1 and S2 normal without murmurs, rubs, or gallops. ABDOMEN: Soft, nontender, and nondistended. Positive bowel sounds. No evidence of hepatosplenomegaly. Currently, no rebound or guarding noted. EXTREMITIES: Left thumb is erythematous and swollen. Otherwise extremities without clubbing, cyanosis, or edema. RECTAL/GENITAL: Refused. NEUROLOGIC: Cranial nerves II through XII are grossly intact without focal deficits. Motor strength is 5/5 bilaterally. Deep tendon reflexes are 2+ plantar. Assessment/Plan Assessment/Plan ASSESSMENT: This is a 58-year-old female. 1. Left finger cellulitis . 2. Left thumb abscess. TREATMENT: 1. Left finger cellulitis/abscess. A Surgery consultation has been obtained with Dr. Chu. A repeat x-ray= neg for osteomyelitis. D/C intravenous vancomycin and cefepime prior to discharge; start oral Augmentin. We will follow recommendations of Surgery. 2. Discharge home today Eladio Fletcher MD October 08, 2018 12:11
[2018-10-08] MEDS ORDERED: AUGMENTIN 875-1 EAC1 ORAL (12:13)
--- NOTE | 2018-10-08 13:11 | Pulmonology Progress Note ---
Assessment/Plan Problems: (1) Cellulitis of left thumb (2) No pertinent past medical history Assessment/Plan no new complains doing better wound care f/u ID recommendations, oral abx, prescription given Subjective ROS Limited/Unobtainable: No Constitutional: Reports: no symptoms HEENT: Repors: no symptoms Allergies: Coded Allergies: No Known Allergies (Unverified , 10/05/18) Objective Last 24 Hour Vital Signs Date Time Temp Pulse Resp B/P (MAP) Pulse Ox O2 Delivery O2 Flow Rate FiO2 10/08/18 12:00 98.7 75 15 103/52 (69) 97 10/08/18 09:00 Room Air 10/08/18 08:00 97.8 80 16 96/49 (65) 97 10/08/18 04:00 98.0 75 18 105/59 (74) 97 10/08/18 00:00 97.6 68 16 110/61 (77) 97 10/07/18 21:00 Room Air 10/07/18 20:00 97.8 72 18 106/57 (73) 97 10/07/18 16:00 98.2 74 18 110/59 (76) Intake and Output 10/07/18 10/08/18 19:00 07:00 Intake Total 930.000 ml Balance 930.000 ml Intake Oral 600 ml IV Total 330.000 ml # Voids 3 General Appearance: WD/WN HEENT: normocephalic, atraumatic Respiratory/Chest: chest wall non-tender, lungs clear, chest wall tender Breasts: no masses Cardiovascular: normal peripheral pulses Abdomen: normal bowel sounds, soft, non tender Genitourinary: normal external genitalia Extremities: no clubbing Laboratory Tests 10/07/18 18:55: Vancomycin Level Trough 11.3 Current Medications Medications (Trade) Dose Ordered Sig/Collin Route PRN Reason Start Time Stop Time Status Last Admin Dose Admin Acetaminophen (Tylenol) 650 mg Q6H PRN ORAL Mild Pain/Temp > 100.5 10/05/18 07:45 11/04/18 07:44 Acetaminophen/ Hydrocodone Bitart ([place] 5/325) 1 tab Q6H PRN ORAL Moderate Pain (Pain Scale 4-6) 10/05/18 07:45 10/12/18 07:44 10/06/18 15:35 Cefepime HCl 1 gm/ Dextrose 55 ml @ 110 mls/hr EVERY 12 HOURS IVPB 10/05/18 09:00 10/12/18 08:59 10/08/18 09:55 Morphine Sulfate (Morphine Sulfate) 2 mg Q4H PRN IVP Severe Pain (Pain Scale 7-10) 10/05/18 07:45 10/12/18 07:44 Ondansetron HCl (Zofran) 4 mg Q4H PRN IVP Nausea & Vomiting 10/05/18 07:45 11/04/18 07:44 Vancomycin HCl (Vanco rx to dose) 1 ea DAILY PRN MISC Per rx protocol 10/05/18 07:45 11/04/18 07:44 Vancomycin HCl 750 mg/Sodium Chloride 275 ml @ 183.333 mls/hr Q12H IVPB 10/06/18 08:00 10/11/18 07:59 10/08/18 08:29 Baldo Smiley MD October 08, 2018 13:11
--- NOTE | 2018-10-08 14:45 | NUR ---
DISCHARGE PLAN PATIENT HAS BEEN REFERRED TO [facility] [place] T: [phone] F: [phone]
--- NOTE | 2018-10-08 15:52 | Surgery Progress Note ---
Surgery Progress Note Subjective Symptoms: improved, tolerating diet, passing flatus, BM, pain decreased Objective Last 24 Hour Vital Signs Date Time Temp Pulse Resp B/P (MAP) Pulse Ox O2 Delivery O2 Flow Rate FiO2 10/08/18 12:00 98.7 75 15 103/52 (69) 97 10/08/18 09:00 Room Air 10/08/18 08:00 97.8 80 16 96/49 (65) 97 10/08/18 04:00 98.0 75 18 105/59 (74) 97 10/08/18 00:00 97.6 68 16 110/61 (77) 97 10/07/18 21:00 Room Air 10/07/18 20:00 97.8 72 18 106/57 (73) 97 10/07/18 16:00 98.2 74 18 110/59 (76) I&O Intake and Output 10/07/18 10/08/18 19:00 07:00 Intake Total 930.000 ml Balance 930.000 ml Intake Oral 600 ml IV Total 330.000 ml # Voids 3 Dressing: dry Wound: clean Cardiovascular: RSR Respiratory: clear Abdomen: soft, flat, non-tender, present bowel sounds Extremities: no edema, no tenderness, no cyanosis Laboratory Tests Test 10/07/18 18:55 Vancomycin Level Trough 11.3 ug/mL (5.0-12.0) Plan Problems: (1) Cellulitis of left thumb Assessment & Plan: left thumb cellulitis after trauma afebrile, HD stable, labs pending exam with left thumb edema, and mild cellulitis. tender at nailbed. no significant edema or tenderness at pip, mainly at dip. skin sloth from underlying hematoma. wound bed evaluated at bedside. sloth skin removed and underlying tissue bed clean and healthy nail bed visible and may not be viable. wound cleaned dressings applied wound reevaluated today and much improved. near complete resolution of cellulitis. edema improved. now only with wound healing cont with current therapy okay for diet cont with dressing changes okay to shower okay to wash hands d/c planning can f/u outpatient thank you Ketan Chu October 08, 2018 15:52
[2018-10-08 16:00] VITALS: BP 110/60
--- NOTE | 2018-10-08 17:00 | NUR ---
NURSE NOTES: Patient discharged home as ordered. Stable. Denies pain or SOB. Patient and sister were given thorough discharge instructions by RN, sister verbalized understanding. Patient's sister was given all belongings and medications. Patient's sister given thorough medication instructions and printed information regarding [place], verbalized understanding. Skin is clean, dry, and intact. no IV access. Patient assisted into private vehicle without incident. Patient's sister has supplies for dressing changes.
[2018-10-08] MEDS ORDERED: NS 500ML ONE (17:19)
--- NOTE | 2018-10-09 09:16 | Discharge Summary ---
Discharge Summary Discharge Summary _ DATE OF ADMISSION: 10/05/2018 DATE OF DISCHARGE: 10/08/2018 DISCHARGED BY: Dr. Rajput REASON FOR ADMISSION: 58 years old female initially presented to [facility] with chief complaint of swelling of the left thumb. Patient stated stated that she shut her left thumb in a door. Thumb began to swell and was erythematous and painful. In emergency department patient was diagnosed with left thumb cellulitis , possible abscess . The patient was subsequently transferred to [facility] for insurance purposes. CONSULTANTS: pulmonary/architecture professor Dr. Smiley surgery Dr. Chu [facility] COURSE: Patient admitted to medical surgical floor. Surgery consult was requested. Patient started on empiric antibiotics. X-ray of the left hand revealed minimal degenerative changes at the DIP joints. No acute process. Surgeon seen and evaluated patient . Sloth skin was removed , underlying tissue bed clean and healthy. Wound cleaned, dressing applied. Pain management was addressed as needed. Patient was monitored for few days if she needs any surgical intervention. Wound reevaluated by surgeon daily and improved with near complete resolution of cellulitis. Edema improved . Surgeon recommended continue current therapy for wound care and complete oral antibiotic upon discharge. No need for surgical intervention . Supportive care provided. Home health care was arranged . Patient was provided prescription for oral antibiotics to complete the course at home. Patient remained afebrile, no leukocytosis. Patient was stable for discharge. FINAL DIAGNOSES: Left thumb cellulitis secondary to trauma DISCHARGE MEDICATIONS: See Medication Reconciliation list. DISCHARGE INSTRUCTIONS: Patient was discharged home with home health services. Follow up with primary care provider in one week. I have been assigned to dictate discharge summary for this account. I was not involved in the patient's management. Felicita Sin NP October 09, 2018 09:16
== END 2018-10-08 17:20 | disposition home health service (06) | DRG 603 ==
LOC: 3E 05:00
DX: L03.012 Cellulitis of left finger (principal); L02.512 Cutaneous abscess of left hand; S60.01 Contusion of thumb without damage to nail; W22.8XXS Striking against or struck by other objects, sequela
CPT/HCPCS: 36415; 80048; 80202; 83735; 84100; 85025; 85610; 85730